=== PATIENT | female | born 1995 | race Caucasian/White ===

== ENCOUNTER 2018-12-19 16:57 | Emergency (ER) | payer MEDICAID, SELFPAY ==
[2018-12-19 17:00] VITALS: BP 145/89; PULSE 86; RESP 16; TEMP 36.6; O2SAT 96
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
[2018-12-19] MEDS: Acetaminophen 325 MG TAB 650 MG PO (17:27)
[2018-12-19] MEDS: Ibuprofen 600 MG TAB PO (17:27)
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
== END 2018-12-19 18:59 | disposition home or self-care (01) ==
PROVIDERS: Emergency Provider Student in an Organized Health Care Education/Training Program
DX: M79.641 Pain in right hand (principal); W22.8XXA Striking against or struck by other objects, initial encounter
CPT/HCPCS: 29125; 99283; 73130; 99282